=== PATIENT | male | born 1950 | race Caucasian/White ===

== ENCOUNTER 2018-06-09 07:32 | Observation (INO) ==
[2018-06-09] MEDS ORDERED: Morphine Inj 4 MG/ML Vial IV.PUSH ONE ×2 (08:36→09:48)
[2018-06-09] MEDS ORDERED: Famotidine PF Inj 20 MG/2 ML Vial IV.PUSH ONE (08:36)
--- NOTE | 2018-06-09 08:43 | ED ---
HPI General Chief Complaint: Abdominal Pain Stated Complaint: Stomach Pain Complaint Time Seen by Provider: 06/09/18 08:18 Source: patient Mode of arrival: ambulatory Limitations: no limitations History of Present Illness HPI narrative: 67 years old male complains abdominal pain. Patient states that he has intermittent abdominal pain for the past month. Patient states that the pain usually localized around epigastric area and lasted a few hours then resolved completely. Patient states that the pain radiates to the back at that time. Patient has not seen any physician for abdominal pain. Patient started having abdominal pain since last night. Patient stated pain is cramping pain constant pain localized around epigastric area. Patient denies any pain radiation today. Patient states that he has nausea but no vomiting or diarrhea. Patient denies any fever chills. Patient denies any dysuria or frequency. Patient denies any medical problem. Patient is not on any routine medication. Patient denies any chest pain or shortness of breath. Patient denies alcohol abuse. MD complaint: Reports abdominal pain Onset (ago): hour(s) Pain Consistency: constant Location: Reports RUQ and epigastric Severity: moderate Severity scale (1-10): 7 Quality: Reports cramping Radiation: Reports none Migration to: Reports no migration Relieving factors: nothing Exacerbating factors: nothing Associated symptoms: Reports nausea Related Data Home Medications Medication Instructions Recorded Confirmed No Known Home Medications 06/09/18 06/09/18 Allergies Allergy/AdvReac Type Severity Reaction Status Date / Time No Known Allergies Allergy Verified 06/09/18 07:59 Review of Systems ROS: all other systems reviewed are negative PMFSH Medical History Medical History Patient denies medical problems (Acute) Surgical History Surgical History No history of previous surgery (Acute) Social History Social History Substance History: No History of Abuse Second Hand Smoke Exposure: Yes Smoking Status: Never smoker How Often Do You Have a Drink Containing Alcohol: 2 to 4 times a month Recent Travel in [facility] within the Last 8 Weeks: No Recent Out of Country Travel within the Last 8 Weeks: No Immunization History Tetanus Immunization: <5 Years Exam Narrative Exam Narrative: GENERAL: Well-nourished, well-developed patient. SKIN: Focused skin assessment warm/dry. HEAD: Normocephalic. EYES: No scleral icterus. No injection or drainage. NECK: Supple, trachea midline. No JVD or lymphadenopathy. CARDIOVASCULAR: Regular rate and rhythm without murmurs, gallops, or rubs. RESPIRATORY: Breath sounds equal bilaterally. No accessory muscle use. GASTROINTESTINAL: Abdomen soft, nondistended. Patient has moderate tenderness on palpation epigastric and right upper quadrant of the abdomen. No rebound tenderness. No mass. MUSCULOSKELETAL: No cyanosis, or edema. BACK: Nontender without obvious deformity. No CVA tenderness. Neurologic exam normal. Course Initial Documented Vital Signs Pulse Rate 55 L 06/09/18 07:41 Respiratory Rate 18 06/09/18 07:41 Blood Pressure 149/62 H 06/09/18 07:41 Pulse Oximetry 99 06/09/18 07:41 Last Documented Vital Signs Pulse Rate 63 06/09/18 08:05 Respiratory Rate 14 06/09/18 08:05 Blood Pressure 118/59 L 06/09/18 08:05 Pulse Oximetry 99 06/09/18 08:59 Medical Decision Making [facility] Narrative Medical decision making narrative: 67 years old male with epigastric right upper quadrant abdominal pain. Normal saline solution 125 cc an hour. Morphine 2 mg IV. Zofran 4 mg IV. Pepcid 20 mg IV. Repeated morphine 4 mg IV. Zosyn 3.375 g IV given. Medical Screen Exam Complete: Yes Emergency Medical Condition: Yes Differential Diagnosis Differential Diagnosis: Differential diagnosis including gastritis, PUD, pancreatitis, cholecystitis, colitis, UTI, pyelonephritis, nephrolithiasis. Lab Data Lab results reviewed: Yes I reviewed the patient's lab results. Result diagrams: 06/09/18 09:00 06/09/18 09:00 Lab Results 06/09/18 06/09/18 06/09/18 Range/Units 09:00 09:00 09:00 WBC 8.9 (4.0-11.0) th/mm3 RBC 4.49 L (4.50-5.90) mil/mm3 Hgb 13.8 (13.0-17.0) gm/dL Hct 40.2 (39.0-51.0) % MCV 89.4 (80.0-100.0) fL MCH 30.6 (27.0-34.0) pg MCHC 34.3 (32.0-36.0) % RDW 12.9 (11.6-17.2) % Plt Count 284 (150-450) th/mm3 MPV 8.5 (7.0-11.0) fL Neut % (Auto) 79.8 H (16.0-70.0) % Lymph % (Auto) 12.4 (9.0-44.0) % [place] % (Auto) 7.1 (0.0-8.0) % Eos % (Auto) 0.2 (0.0-4.0) % Baso % (Auto) 0.5 (0.0-2.0) % Neut # (Auto) 7.1 (1.8-7.7) th/mm3 Lymph # (Auto) 1.1 (1.0-4.8) th/mm3 [place] # (Auto) 0.6 (0.0-0.9) th/mm3 Eos # (Auto) 0.0 (0.0-0.4) th/mm3 Baso # (Auto) 0.0 (0.0-0.2) th/mm3 WBC Differential . Differential Comment Auto diff final PT 10.8 (9.8-11.6) sec INR 1.1 Ratio APTT 25.9 (23.4-31.7) sec Sodium 139 (136-145) meq/L Potassium 4.0 (3.5-5.1) meq/L Chloride 104 (98-107) meq/L Carbon Dioxide 25.9 (21.0-32.0) meq/L Anion Gap 9 (5-15) meq/L BUN 23 H (7-18) mg/dL Creatinine 1.19 (0.60-1.30) mg/dL Estimated GFR 61 L (>89) mL/min Random Glucose 156 H (74-106) mg/dL Calcium 8.5 (8.5-10.1) mg/dL Total Bilirubin 0.4 (0.2-1.0) mg/dL AST 23 (15-37) U/L ALT 30 (12-78) U/L Alkaline Phosphatase 68 (45-117) U/L Total Creatine Kinase 177 (39-308) U/L CK-MB (CK-2) 1.4 (0.5-3.6) ng/mL Troponin I Less than 0.02 L (0.02-0.05) ng/mL Total Protein 7.7 (6.4-8.2) g/dL Albumin 4.1 (3.4-5.0) g/dL Lipase 92 (73-393) U/L Urine Color (Yellw/Straw) Urine Clarity (Clear) Urine pH (5.0-8.5) Ur Specific [place] (1.002-1.035) Urine Protein (Neg-Trace) mg/dL Urine Glucose (UA) (Negative) mg/dL Urine Ketones (Negative) mg/dL Urine Occult Blood (Negative) Urine Nitrate (Negative) Urine Bilirubin (Negative) Urine Urobilinogen (Less than 2) mg/dL Ur Leukocyte Esterase (Negative) Urine RBC (0-3) /hpf Urine WBC (0-5) /hpf Urine Mucus (Occasional) /lpf Micro UA Comment Ur Microscopic Review Urine Culture Comments 06/09/18 Range/Units 11:20 WBC (4.0-11.0) th/mm3 RBC (4.50-5.90) mil/mm3 Hgb (13.0-17.0) gm/dL Hct (39.0-51.0) % MCV (80.0-100.0) fL MCH (27.0-34.0) pg MCHC (32.0-36.0) % RDW (11.6-17.2) % Plt Count (150-450) th/mm3 MPV (7.0-11.0) fL Neut % (Auto) (16.0-70.0) % Lymph % (Auto) (9.0-44.0) % [place] % (Auto) (0.0-8.0) % Eos % (Auto) (0.0-4.0) % Baso % (Auto) (0.0-2.0) % Neut # (Auto) (1.8-7.7) th/mm3 Lymph # (Auto) (1.0-4.8) th/mm3 [place] # (Auto) (0.0-0.9) th/mm3 Eos # (Auto) (0.0-0.4) th/mm3 Baso # (Auto) (0.0-0.2) th/mm3 WBC Differential Differential Comment PT (9.8-11.6) sec INR Ratio APTT (23.4-31.7) sec Sodium (136-145) meq/L Potassium (3.5-5.1) meq/L Chloride (98-107) meq/L Carbon Dioxide (21.0-32.0) meq/L Anion Gap (5-15) meq/L BUN (7-18) mg/dL Creatinine (0.60-1.30) mg/dL Estimated GFR (>89) mL/min Random Glucose (74-106) mg/dL Calcium (8.5-10.1) mg/dL Total Bilirubin (0.2-1.0) mg/dL AST (15-37) U/L ALT (12-78) U/L Alkaline Phosphatase (45-117) U/L Total Creatine Kinase (39-308) U/L CK-MB (CK-2) (0.5-3.6) ng/mL Troponin I (0.02-0.05) ng/mL Total Protein (6.4-8.2) g/dL Albumin (3.4-5.0) g/dL Lipase (73-393) U/L Urine Color Yellow (Yellw/Straw) Urine Clarity Clear (Clear) Urine pH 5.0 (5.0-8.5) Ur Specific [place] Greater than 1.060 H (1.002-1.035) Urine Protein Negative (Neg-Trace) mg/dL Urine Glucose (UA) Negative (Negative) mg/dL Urine Ketones Trace H (Negative) mg/dL Urine Occult Blood Negative (Negative) Urine Nitrate Negative (Negative) Urine Bilirubin Negative (Negative) Urine Urobilinogen 2.0 H (Less than 2) mg/dL Ur Leukocyte Esterase Negative (Negative) Urine RBC 1 (0-3) /hpf Urine WBC 1 (0-5) /hpf Urine Mucus Few H (Occasional) /lpf Micro UA Comment Culture not ind Ur Microscopic Review Not Reportable Urine Culture Comments Culture not ind Imaging Data Radiologist's impression: Abdomen/Pelvis CT 06/09/18 08:36 CONCLUSION: 1. Mild gallbladder wall thickening without evidence of cholelithiasis or pericholecystic fluid or inflammation. 2. Otherwise unremarkable exam. Gallbladder Ultrasound 06/09/18 10:41 CONCLUSION: 1. Cholelithiasis with mildly thickened gallbladder wall and trace pericholecystic fluid. Acute inflammatory gallbladder disease is suspected. 2. No evidence of biliary duct obstructive disease. Discharge Plan Discharge Disposition Patient Disposition: 30 Still Patient Discharge Details Diagnosis: Abdominal pain, Acute cholecystitis Physicians Team ED Provider: Andrew Mckinnon Primary Care Provider: Primary Nadja Newell Attending Provider: David Hillman Other Providers: Pao Chapman Discharge Interventions Interventions: Vital Signs Last Done: 06/09/18 08:05 Status ED Status: Admitted Observation Patient
[2018-06-09] MEDS ORDERED: Sod Chloride 0.9% Inj 1,000 ML IV.CONT SCH (08:45)
[2018-06-09 09:21] LABS: Baso % (Auto) 0.5 % (0.0-2.0); Eos % (Auto) 0.2 % (0.0-4.0); Hematocrit 40.2 % (39.0-51.0); Hemoglobin 13.8 gm/dL (13.0-17.0); Lymph # (Auto) 1.1 th/mm3 (1.0-4.8); Lymph % (Auto) 12.4 % (9.0-44.0); Mean Corpuscular HGB Conc 34.3 % (32.0-36.0); Mean Corpuscular Hemoglobin 30.6 pg (27.0-34.0); Mean Corpuscular Volume 89.4 fL (80.0-100.0); Mean Platelet Volume 8.5 fL (7.0-11.0); Mono # (Auto) 0.6 th/mm3 (0.0-0.9); Mono % (Auto) 7.1 % (0.0-8.0); Neut # (Auto) 7.1 th/mm3 (1.8-7.7); Neut % (Auto) 79.8 % (16.0-70.0); Platelet Count 284 th/mm3 (150-450); Red Blood Count 4.49 mil/mm3 (4.50-5.90); Red Cell Distribution Width 12.9 % (11.6-17.2); White Blood Count 8.9 th/mm3 (4.0-11.0)
[2018-06-09 09:29] LABS: Activated Partial Thrombo Time 25.9 sec (23.4-31.7); INR 1.1 Ratio; Prothrombin Time 10.8 sec (9.8-11.6)
[2018-06-09 09:38] LABS: Albumin 4.1 g/dL (3.4-5.0); Anion Gap 9 meq/L (5-15); Aspartate Aminotransferase 23 U/L (15-37); Blood Urea Nitrogen 23 mg/dL (7-18); Calcium 8.5 mg/dL (8.5-10.1); Carbon Dioxide 25.9 meq/L (21.0-32.0); Chloride 104 meq/L (98-107); Glomerular Filtration Rate 61 mL/min (>89); Glucose,Random 156 mg/dL (74-106); Lipase 92 U/L (73-393); Sodium 139 meq/L (136-145)
[2018-06-09 09:43] LABS: Alanine Aminotransferase 30 U/L (12-78); Alkaline Phosphatase 68 U/L (45-117); Creatine Kinase 177 U/L (39-308); Total Protein 7.7 g/dL (6.4-8.2)
[2018-06-09 09:55] LABS: Creatine Kinase MB 1.4 ng/mL (0.5-3.6)
--- NOTE | 2018-06-09 10:39 | CT ---
EXAM DATE: 06/09/2018 10:16 AM EST AGE/SEX: 67 years / Male INDICATIONS: Epigastric and right upper quadrant pain. CLINICAL DATA: This is the patient's initial encounter. Patient reports that signs and symptoms have been present for 1 day and indicates a pain score of 7/10. MEDICAL/SURGICAL HISTORY: None. None. ORAL CONTRAST: No oral contrast ingested. RADIATION DOSE: 11.88 CTDI (mGy) COMPARISON: No prior exams available for comparison. TECHNIQUE: Multiple contiguous axial images were obtained through the abdomen and pelvis following b olus infusion of 95 ml Omnipaque 350 (iohexol) nonionic water-soluble contrast as a single exam dos e. No oral contrast ingested. Using automated exposure control and adjustment of the mA and/or kV ac cording to patient size, radiation dose was kept as low as reasonably achievable to obtain optimal di agnostic quality images. DICOM format image data is available electronically for review and comparis on. FINDINGS: Lower Lungs: The visualized lower lungs are clear. Liver: The liver has a homogeneous density without space-occupying lesion. There is no dilation of th e biliary tree. There are no calcified gallstones. The bladder wall is mildly thickened. There is no pericholecystic fluid Spleen: Homogeneous density without enlargement. Pancreas: Unremarkable without mass or calcification. Kidneys: Normal in size and shape. No evidence of mass or hydronephrosis. Adrenal Glands: Unremarkable. Aorta: The aorta and proximal iliac vessels are grossly unremarkable without aneurysmal dilation. Bowel/Mesentery: The bowel loops are grossly unremarkable. The cecum and sigmoid colon have a normal configuration. Abdominal Wall: Intact. Retroperitoneum: No evidence of adenopathy in the retrocrural, para-aortic, or deep pelvic regions. Bladder: Contours are smooth. Reproductive Organs: No abnormal masses or calcifications seen. Inguinal: The inguinal region is unremarkable without evidence of adenopathy. Bony Structures: Unremarkable. CONCLUSION: 1. Mild gallbladder wall thickening without evidence of cholelithiasis or pericholecystic fluid or i nflammation. 2. Otherwise unremarkable exam. Electronically signed by: John Jacobson MD 06/09/2018 10:38 AM EST
[2018-06-09] MEDS ORDERED: Aluminum/Magnesium/Simethacone Susp 30 ML UDC PO ONE (10:55)
[2018-06-09] MEDS ORDERED: Atropine/Scopolamine/Hyoscyamine/Phenobarb 10 ML Liq UDC PO ONE (10:55)
--- NOTE | 2018-06-09 11:21 | US ---
EXAM DATE: 06/09/2018 11:11 AM EST AGE/SEX: 67 years / Male INDICATIONS: Right upper quadrant abdominal pain. CLINICAL DATA: This is the patient's initial encounter. Patient reports that signs and symptoms have been present for 1 day and indicates a pain score of 8/10. MEDICAL/SURGICAL HISTORY: . Abdominal pain. Nausea. None. COMPARISON: [facility] [place], CT ABDOMEN & PELVIS W CONTRAST, 06/09/2018. . MEASUREMENTS: Liver:__ 15.3 cm. Common Bile Duct:__ 8mm. FINDINGS: Liver: Normal echotexture without focal lesion or ductal dilatation. Portal Vein: Hepatopedal flow seen in portal vein. Common Duct: No intraluminal mass or stone visualized. Gallbladder: Numerous intraluminal filling defects are noted. Gallbladder wall is mildly thickened. There is trace pericholecystic fluid. Pancreas: The visualized portions are within normal limits Right Kidney: Normal echotexture and cortical thickness. No mass or hydronephrosis. Other: None. CONCLUSION: 1. Cholelithiasis with mildly thickened gallbladder wall and trace pericholecystic fluid. Acute infl ammatory gallbladder disease is suspected. 2. No evidence of biliary duct obstructive disease. Electronically signed by: John Jacobson MD 06/09/2018 11:20 AM EST
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
[2018-06-09 11:44] LABS: Bilirubin,Urine Negative (Negative); Clarity,Urine Clear (Clear); Color,Urine Yellow (Yellw/Straw); Glucose,Urine (UA) Negative (Negative); Leukocyte Esterase,Urine Negative (Negative); Mucus,Urine Few /lpf (Occasional); Nitrite,Urine Negative (Negative)
[2018-06-09] MEDS ORDERED: Morphine Sulfate Inj 2 MG/ML Vial IV.PUSH PRN (11:50)
[2018-06-09] MEDS ORDERED: Acetaminophen 325 MG Tablet PO PRN (11:50)
[2018-06-09] MEDS ORDERED: Bisacodyl 10 MG Supp RECTAL PRN (11:50)
[2018-06-09] MEDS ORDERED: Morphine Inj 4 MG/ML Vial IV.PUSH PRN (11:50)
[2018-06-09] MEDS ORDERED: Naloxone Inj 0.4 MG/ML Vial IV.PUSH PRN (11:50)
[2018-06-09] MEDS ORDERED: Piperacil/Tazo 3.375 GM Premix 50 ML IV.SIG ONE (12:52)
--- NOTE | 2018-06-09 13:15 | P.CONGI ---
History of Present Illness Consult date: 06/09/18 Consult reason: Abdominal pain Chief complaint: Intractable Abdominal Pain History of Present Illness: This is a 67-year-old male with no significant past medical history who presented to the emergency department earlier today with complaints of abdominal pain. Patient states that he has had one prior episode of abdominal pain over the past month, states approximately a month ago. States that pain was located in the middle of his upper abdomen and woke him up in the middle the night. States the pain eventually resolved on its own. Patient also reports 2 episodes of nausea upon awakening in the morning, associated emesis but denies hematemesis and coffee ground emesis. Patient states the nausea then resolves throughout the day. He denies any decreased appetite or intolerance to food. Patient reports that bowel movements are normal. Patient states that the episode of abdominal pain began approximately 1:30 in the morning, states the pain is located across upper abdomen. States that pain has been constant since then. Denies any aggravating or alleviating factors. Denies any worsening of the pain after meals. Describes the pain as dull. Denies any fevers. Does report chills. Denies any known personal or family history of gallbladder issues. Gallbladder US revealed cholelithiasis with mildly thickened gallbladder wall and trace pericholecystic fluid. Acute inflammatory gallbladder disease is suspected. There is no evidence of biliary duct obstructive disease. Reports occasional ETOH. Denies smoking. Rare Aleve use. Review of Systems Constitutional: Reports chills, Denies fever(s), Denies weight loss Gastrointestinal: Reports abdominal pain, Reports change in stools, Reports nausea, Denies black, tarry stools, Denies bright, red blood in stools, Denies vomiting PMFSH - History History Provided By: Patient - Medical History Medical History: Medical History (Last Reviewed 06/09/18 @ 08:41 by Andrew Mckinnon MD) Patient denies medical problems - Surgical History Surgical History: Surgical History (Last Reviewed 06/09/18 @ 08:41 by Andrew Mckinnon MD) No history of previous surgery - Tobacco History Second Hand Smoke Exposure: Yes Smoking Status: Never smoker - Alcohol History How Often Do You Have a Drink Containing Alcohol: 2 to 4 times a month - Substance Use History Substance History: No History of Abuse - Travel History Recent Travel in the [facility] Within the Last 8 Weeks: No Recent Travel Out of the Country Within the Last 8 Weeks: No - Immunization History Tetanus Immunization: <5 Years Medications and Allergies Active Medications: Active Medications Acetaminophen (Tylenol) 650 mg PO Q6HR PRN PRN Reason: PAIN SCALE 1 TO 2 Al Hydroxide/Mg Hydroxide (Milk Of Magnjaun Liq) 30 ml PO Q12H PRN PRN Reason: Mild Constipation Bisacodyl (Dulcolax Supp) 10 mg RECTAL DAILY PRN PRN Reason: SEVERE CONSITIPATION Hydromorphone HCl (Dilaudid Pf Inj) 1 mg IV.PUSH Q3H PRN PRN Reason: BREAKTHROUGH PAIN Sodium Chloride (Ns Inj) 1,000 mls @ 125 mls/hr IV.CONT .Q8H ELADIO Stop: 06/09/18 16:44 Last Admin: 06/09/18 08:52 Dose: 125 mls/hr Sodium Chloride (Ns Inj) 1,000 mls @ 140 mls/hr IV.CONT .Q7H9M ELADIO Piperacillin/Tazobactam/Dextrose (Zosyn 3.375 Gm Premix) 50 mls @ 100 mls/hr IV.SIG ONCE ONE Stop: 06/09/18 13:21 Morphine Sulfate (Morphine Inj) 2 mg IV.PUSH Q3H PRN PRN Reason: PAIN 3-5; IF UABLE TO TAKE PO Morphine Sulfate (Morphine Inj) 4 mg IV.PUSH Q3H PRN PRN Reason: PAIN 6-10;IF UNABLE TO TAKE PO Naloxone HCl (Narcan Inj) 0.4 mg IV.PUSH UNSCH PRN PRN Reason: SEE LABEL COMMENTS Ondansetron HCl (Zofran Inj) 4 mg IV.PUSH Q6H PRN PRN Reason: NAUSEA OR VOMITING Sennosides (Senokot) 17.2 mg PO Q12H PRN PRN Reason: Moderate Constipation Allergies Allergy/AdvReac Type Severity Reaction Status Date / Time No Known Allergies Allergy Verified 06/09/18 07:59 Home Medications Medication Instructions Recorded Confirmed Type No Known Home Medications 06/09/18 06/09/18 History Exam Vital signs: Vital Signs 06/09/18 07:41 06/09/18 08:05 06/09/18 08:59 Pulse Rate 55 L 63 Respiratory Rate 18 14 Blood Pressure 149/62 H 118/59 L Pulse Oximetry 99 99 99 Intake & Output 06/08/18 06/09/1806/09/18 18:59 06:59 18:59 Weight 102.058 kg - Constitutional no acute distress - Routine HEENT Exam Head: Present: normocephalic, atraumatic - Routine Respiratory Exam Absent: accessory muscle use - Routine Abdominal Exam Present: soft, normoactive bowel sounds, tenderness (RUQ tenderness ). Absent: distended - Routine Skin Exam Present: dry, warm - Routine Neurological Exam Present: alert, oriented X3 Results - Labs CBC & Chem 7: 06/09/18 09:00 06/09/18 09:00 Labs: Laboratory Results - last 24 hr 06/09/18 06/09/18 06/09/18 09:00 09:00 09:00 WBC 8.9 RBC 4.49 L Hgb 13.8 Hct 40.2 MCV 89.4 MCH 30.6 MCHC 34.3 RDW 12.9 Plt Count 284 MPV 8.5 Neut % (Auto) 79.8 H Lymph % (Auto) 12.4 [place] % (Auto) 7.1 Eos % (Auto) 0.2 Baso % (Auto) 0.5 Neut # (Auto) 7.1 Lymph # (Auto) 1.1 [place] # (Auto) 0.6 Eos # (Auto) 0.0 Baso # (Auto) 0.0 WBC Differential . Differential Comment Auto diff final PT 10.8 INR 1.1 APTT 25.9 Sodium 139 Potassium 4.0 Chloride 104 Carbon Dioxide 25.9 Anion Gap 9 BUN 23 H Creatinine 1.19 Estimated GFR 61 L Random Glucose 156 H Calcium 8.5 Total Bilirubin 0.4 AST 23 ALT 30 Alkaline Phosphatase 68 Total Creatine Kinase 177 CK-MB (CK-2) 1.4 Troponin I Less than 0.02 L Total Protein 7.7 Albumin 4.1 Lipase 92 Urine Color Urine Clarity Urine pH Ur Specific [place] Urine Protein Urine Glucose (UA) Urine Ketones Urine Occult Blood Urine Nitrate Urine Bilirubin Urine Urobilinogen Ur Leukocyte Esterase Urine RBC Urine WBC Urine Mucus Micro UA Comment Ur Microscopic Review Urine Culture Comments 06/09/18 11:20 WBC RBC Hgb Hct MCV MCH MCHC RDW Plt Count MPV Neut % (Auto) Lymph % (Auto) [place] % (Auto) Eos % (Auto) Baso % (Auto) Neut # (Auto) Lymph # (Auto) [place] # (Auto) Eos # (Auto) Baso # (Auto) WBC Differential Differential Comment PT INR APTT Sodium Potassium Chloride Carbon Dioxide Anion Gap BUN Creatinine Estimated GFR Random Glucose Calcium Total Bilirubin AST ALT Alkaline Phosphatase Total Creatine Kinase CK-MB (CK-2) Troponin I Total Protein Albumin Lipase Urine Color Yellow Urine Clarity Clear Urine pH 5.0 Ur Specific [place] Greater than 1.060 H Urine Protein Negative Urine Glucose (UA) Negative Urine Ketones Trace H Urine Occult Blood Negative Urine Nitrate Negative Urine Bilirubin Negative Urine Urobilinogen 2.0 H Ur Leukocyte Esterase Negative Urine RBC 1 Urine WBC 1 Urine Mucus Few H Micro UA Comment Culture not ind Ur Microscopic Review Not Reportable Urine Culture Comments Culture not ind - Imaging Impressions Abdomen/Pelvis CT 06/09/18 08:36 CONCLUSION: 1. Mild gallbladder wall thickening without evidence of cholelithiasis or pericholecystic fluid or inflammation. 2. Otherwise unremarkable exam. Gallbladder Ultrasound 06/09/18 10:41 CONCLUSION: 1. Cholelithiasis with mildly thickened gallbladder wall and trace pericholecystic fluid. Acute inflammatory gallbladder disease is suspected. 2. No evidence of biliary duct obstructive disease. Assessment and Plan - Plan Assessment: - Upper abdominal pain- Patient states that he has had one prior episode of abdominal pain over the past month, states approximately a month ago. States that pain was located in the middle of his upper abdomen and woke him up in the middle the night. States the pain eventually resolved on its own. Patient also reports 2 episodes of nausea upon awakening in the morning, denies any emesis. Patient denies any nausea or emesis throughout the day. He denies any decreased appetite or intolerance to food. Patient reports that bowel movements are normal. Patient states that this episode of abdominal pain began approximately 1:30 in the morning, states the pain is located across his entire upper abdomen. States that pain is been constant since then. Denies any aggravating or alleviating factors. Denies any worsening of the pain after meals. Describes the pain as dull. Denies any fevers. Does report chills. Denies any known personal or family history of gallbladder issues. Occasional ETOH. Denies smoking. Occasional Aleve use. Gallbladder US (06/09) cholelithiasis with mildly thickened gallbladder wall and trace pericholecystic fluid. Acute inflammatory gallbladder disease is suspected. There is no evidence of biliary duct obstructive disease. CT abdomen/pelvis W IV contrast (06/09) Mild gallbladder wall thickening without evidence of cholelithiasis or pericholecystic fluid or inflammation. Pt reports last EGD approximately 6 years ago, normal exam. History of Schatzki's ring with previous dilatation for bolus sensation, pt denies any continuos dysphagia or bolus sensation Last colonoscopy approximately 6 years ago, states normal exam. Plan: Consult GS Anti-emetics PRN Pain control NPO pending surgery eval Further recommendations based on clinical course and findings of above Pt has been seen and examined by myself and Dr. Chapman and this note is written on her behalf
[2018-06-09] MEDS ORDERED: fentaNYL Citrate Inj 250 MCG/5 ML Ampul ONE (13:40)
--- NOTE | 2018-06-09 13:44 | P.CONGS ---
[facility] Gen Surgery Consult Note Consult date: 06/09/18 Narrative: 67-year-old male presents with severe epigastric abdominal Pain which woke him up from sleep early this morning. Last night he had pot roast mashed potatoes salad and a Snickers bar for dinner. He and his relate that he has had 3- 4 such episodes beginning one month ago. He has also had persistent intermittent nausea. He was evaluated in the emergency department and noted to have normal white blood count and normal LFTs. However a CT of the abdomen pelvis suggested acute cholecystitis and gallbladder ultrasound reveals gallstones, wall thickening, and trace pericholecystic fluid. Review of Systems All other systems reviewed negative except as stated in [facility] - History History Provided By: Patient - Medical History Medical History: Medical History (Last Reviewed 06/09/18 @ 08:41 by Andrew Mckinnon MD) Patient denies medical problems - Surgical History Surgical History: Surgical History (Last Reviewed 06/09/18 @ 08:41 by Andrew Mckinnon MD) No history of previous surgery - Social History I have reviewed the patient's Social History: Yes - Tobacco History Second Hand Smoke Exposure: Yes Smoking Status: Never smoker - Alcohol History How Often Do You Have a Drink Containing Alcohol: 2 to 4 times a month - Substance Use History Substance History: No History of Abuse - Travel History Recent Travel in the [place] Within the Last 8 Weeks: No Recent Travel Out of the Country Within the Last 8 Weeks: No - Immunization History Tetanus Immunization: <5 Years Medications and Allergies Active Medications: Active Medications Acetaminophen (Tylenol) 650 mg PO Q6HR PRN PRN Reason: PAIN SCALE 1 TO 2 Al Hydroxide/Mg Hydroxide (Milk Of Magnjaun Liq) 30 ml PO Q12H PRN PRN Reason: Mild Constipation Bisacodyl (Dulcolax Supp) 10 mg RECTAL DAILY PRN PRN Reason: SEVERE CONSITIPATION Hydromorphone HCl (Dilaudid Pf Inj) 1 mg IV.PUSH Q3H PRN PRN Reason: BREAKTHROUGH PAIN Sodium Chloride (Ns Inj) 1,000 mls @ 125 mls/hr IV.CONT .Q8H ELADIO Stop: 06/09/18 16:44 Last Admin: 06/09/18 08:52 Dose: 125 mls/hr Sodium Chloride (Ns Inj) 1,000 mls @ 140 mls/hr IV.CONT .Q7H9M ELADIO Morphine Sulfate (Morphine Inj) 2 mg IV.PUSH Q3H PRN PRN Reason: PAIN 3-5; IF UABLE TO TAKE PO Morphine Sulfate (Morphine Inj) 4 mg IV.PUSH Q3H PRN PRN Reason: PAIN 6-10;IF UNABLE TO TAKE PO Naloxone HCl (Narcan Inj) 0.4 mg IV.PUSH UNSCH PRN PRN Reason: SEE LABEL COMMENTS Ondansetron HCl (Zofran Inj) 4 mg IV.PUSH Q6H PRN PRN Reason: NAUSEA OR VOMITING Sennosides (Senokot) 17.2 mg PO Q12H PRN PRN Reason: Moderate Constipation Allergies Allergy/AdvReac Type Severity Reaction Status Date / Time No Known Allergies Allergy Verified 06/09/18 07:59 Home Medications Medication Instructions Recorded Confirmed Type No Known Home Medications 06/09/18 06/09/18 History Exam Vital signs: Vital Signs 06/09/18 07:41 06/09/18 08:05 06/09/18 08:59 Pulse Rate 55 L 63 Respiratory Rate 18 14 Blood Pressure 149/62 H 118/59 L Pulse Oximetry 99 99 99 Intake & Output 06/08/18 06/09/18 06/09/18 18:59 06:59 18:59 Weight 102.058 kg Narrative: GENERAL: Awake and alert. No acute distress. Cooperative. HEAD: Normocephalic. Atraumatic. EYES: Pupils equal round and reactive to light bilaterally. No scleral icterus. ENT: Moist oral mucosa. NECK: Trachea midline. CHEST: Lungs clear to auscultation bilaterally with no wheezing or rhonchi. No respiratory distress. CARDIOVASCULAR: Mild tachycardia. ABDOMEN: Moderate tenderness to palpation in the epigastrium and right upper quadrant. Positive Gay sign. EXTREMITIES: No cyanosis or edema. SKIN: Warm, dry, nonjaundiced. Results - Labs 06/09/18 09:00 06/09/18 09:00 Laboratory Results - last 24 hr 06/09/18 06/09/18 06/09/18 09:00 09:00 09:00 WBC 8.9 RBC 4.49 L Hgb 13.8 Hct 40.2 MCV 89.4 MCH 30.6 MCHC 34.3 RDW 12.9 Plt Count 284 MPV 8.5 Neut % (Auto) 79.8 H Lymph % (Auto) 12.4 [place] % (Auto) 7.1 Eos % (Auto) 0.2 Baso % (Auto) 0.5 Neut # (Auto) 7.1 Lymph # (Auto) 1.1 [place] # (Auto) 0.6 Eos # (Auto) 0.0 Baso # (Auto) 0.0 WBC Differential . Differential Comment Auto diff final PT 10.8 INR 1.1 APTT 25.9 Sodium 139 Potassium 4.0 Chloride 104 Carbon Dioxide 25.9 Anion Gap 9 BUN 23 H Creatinine 1.19 Estimated GFR 61 L Random Glucose 156 H Calcium 8.5 Total Bilirubin 0.4 AST 23 ALT 30 Alkaline Phosphatase 68 Total Creatine Kinase 177 CK-MB (CK-2) 1.4 Troponin I Less than 0.02 L Total Protein 7.7 Albumin 4.1 Lipase 92 Urine Color Urine Clarity Urine pH Ur Specific [place] Urine Protein Urine Glucose (UA) Urine Ketones Urine Occult Blood Urine Nitrate Urine Bilirubin Urine Urobilinogen Ur Leukocyte Esterase Urine RBC Urine WBC Urine Mucus Micro UA Comment Ur Microscopic Review Urine Culture Comments 06/09/18 11:20 WBC RBC Hgb Hct MCV MCH MCHC RDW Plt Count MPV Neut % (Auto) Lymph % (Auto) [place] % (Auto) Eos % (Auto) Baso % (Auto) Neut # (Auto) Lymph # (Auto) [place] # (Auto) Eos # (Auto) Baso # (Auto) WBC Differential Differential Comment PT INR APTT Sodium Potassium Chloride Carbon Dioxide Anion Gap BUN Creatinine Estimated GFR Random Glucose Calcium Total Bilirubin AST ALT Alkaline Phosphatase Total Creatine Kinase CK-MB (CK-2) Troponin I Total Protein Albumin Lipase Urine Color Yellow Urine Clarity Clear Urine pH 5.0 Ur Specific [place] Greater than 1.060 H Urine Protein Negative Urine Glucose (UA) Negative Urine Ketones Trace H Urine Occult Blood Negative Urine Nitrate Negative Urine Bilirubin Negative Urine Urobilinogen 2.0 H Ur Leukocyte Esterase Negative Urine RBC 1 Urine WBC 1 Urine Mucus Few H Micro UA Comment Culture not ind Ur Microscopic Review Not Reportable Urine Culture Comments Culture not ind - Imaging Imaging: ITS Impressions Abdomen/Pelvis CT 06/09/18 08:36 CONCLUSION: 1. Mild gallbladder wall thickening without evidence of cholelithiasis or pericholecystic fluid or inflammation. 2. Otherwise unremarkable exam. Gallbladder Ultrasound 06/09/18 10:41 CONCLUSION: 1. Cholelithiasis with mildly thickened gallbladder wall and trace pericholecystic fluid. Acute inflammatory gallbladder disease is suspected. 2. No evidence of biliary duct obstructive disease. CT scan - abdomen: report reviewed, image reviewed CT scan - pelvis: report reviewed US - abdomen: report reviewed Assessment and Plan - Assessment (1) Acute cholecystitis Code(s): K81.0 - Acute cholecystitis Status: Acute - Plan Patient is a 67-year-old male who has an evaluation consistent with acute cholecystitis. Recommend to proceed to the operating room for laparoscopic cholecystectomy possible open. I discussed details and risks of the case with the patient and his and he desires to proceed.
[2018-06-09] MEDS ORDERED: Bupivacaine/Epinephrine PF Inj 0.5% 30 ML Vial ONE (13:48)
[2018-06-09] MEDS ORDERED: Chlorhexidine Gluconate 2% 1 Pack (2 Cloths) TOPICAL ONE (14:29)
[2018-06-09] MEDS ORDERED: Metoprolol Tartrate 25 MG Tablet PO PRN (14:29)
[2018-06-09] MEDS ORDERED: Sodium Chlor 0.9% Inj 500 ML IV.SIG SCH (15:00)
--- NOTE | 2018-06-09 15:44 | ECG ---
Date Performed: 06/09/2018 Time Performed: 15:28:05 PTAGE: 67 years EKG: Sinus rhythm BORDERLINE LEFT AXIS DEVIATION MODERATE INTRAVENTRICULAR CONDUCTION DELAY BORDERLINE ECG Compared to prior electrocardiogram, rate has increased . DOCTOR: Thomas Black Interpretating Date/Time 06/09/2018 15:43:00
[2018-06-09] MEDS ORDERED: Lidocaine PF 1% Inj 5 ML Syringe OTHER ONE (16:55)
[2018-06-09] MEDS ORDERED: Phenylephrine/NS 1000 MCG/10ML Syringe IV.PUSH ONE (16:55)
[2018-06-09] MEDS ORDERED: Ketorolac Inj 30 MG/ML (IVP) Vial IV.PUSH ONE (16:55)
[2018-06-09] MEDS ORDERED: Glycopyrrolate Inj 1 MG/5 ML Syringe IV.PUSH ONE (16:55)
[2018-06-09] MEDS ORDERED: Neostigmine Inj 5 MG/5 ML Syringe IV.PUSH ONE (16:55)
--- NOTE | 2018-06-09 18:21 | P.OP ---
- Preoperative Diagnosis (1) Acute cholecystitis - Postoperative Diagnosis (1) Acute cholecystitis Date of procedure: 06/09/18 Procedure: Laparoscopic cholecystectomy Anesthesia: TIMOTHY Surgeon: Haresh Soto MD Training And Development Head: Dav Estimated blood loss (mL): 30 Pathology: other (gallbladder and contents) Operation and Findings: Operative findings: Distended thickwalled gallbladder with stones. Procedure in detail: The patient was taken to the operating room and placed in the supine position. General endotracheal anesthesia was induced. The abdomen was prepped and draped in usual sterile fashion and a surgical timeout was performed to verify correct patient procedure and site. Appropriate perioperative antibiotics were administered. Local anesthetic was injected in the skin and subcutaneous tissue superior to the umbilicus and a 5 mm incision performed. The abdomen was entered using the Optiview 5 mm trocar with direct laparoscopic visualization. The abdomen was then insufflated to 15 mmHg with CO2 gas which the patient tolerated well. Next a 12 mm port was placed in the epigastrium and two 5 mm ports in the right upper quadrant and right lateral abdomen. The patient was placed in reverse Trendelenburg position and turned slightly to the left. Attention was turned to the right upper quadrant and the dome of the gallbladder was grasped and retracted cephalad. The gallbladder was tense and distended and required decompression using the aspiration needle. The wall was very thickened. The infundibulum was retracted laterally to expose Calot's triangle. Blunt dissection and judicious use of electrocautery was used to expose the cystic duct and the cystic artery directly entering the gallbladder. Two clips were placed proximally on each of these structures and one distally and they were transected. The gallbladder was then removed from the liver bed using electrocautery. Hemostasis was achieved. The right upper quadrant was copiously irrigated because of spillage of some bile. The gallbladder was then removed from the abdomen using an Endo Catch bag. The clips were in place on the cystic duct and cystic artery stumps with no bleeding or bile leakage. At this point, the abdomen was allowed to desufflate and trochars were removed. The fascia at the 12 mm port site was closed with 0 Vicryl suture. Skin was closed with subcuticular 4-0 Monocryl as well as Dermabond. The patient tolerated the procedure well and was extubated and taken to PACU in stable condition. All sponge and instrument counts were correct.
[2018-06-09] MEDS ORDERED: Sugammadex Inj 200 MG/2 ML Vial IV.PUSH ONE (18:39)
[2018-06-09] MEDS: Sod Chloride 0.9% Inj 1,000 ML IV.CONT SCH (19:46)
[2018-06-09] MEDS: HYDROmorphone PF Inj 1 MG/ML Ampul IV.PUSH PRN (23:39)
[2018-06-10] MEDS: Ketorolac 10 MG Tablet PO SCH ×2 (00:15→05:05)
[2018-06-10] MEDS: Sod Chloride 0.9% Inj 1,000 ML IV.CONT SCH ×3 (03:07→03:12)
[2018-06-10] MEDS: HYDROmorphone PF Inj 1 MG/ML Ampul IV.PUSH PRN (04:03)
--- NOTE | 2018-06-10 06:07 | ECG ---
Date Performed: 06/09/2018 Time Performed: 12:50:04 PTAGE: 67 years EKG: Sinus rhythm WITH MARKED SINUS ARRHYTHMIA INDETERMINATE AXIS MODERATE INTRAVENTRICULAR CONDUCTION DELAY BORDERLIN E ECG NO PREVIOUS TRACING DOCTOR: Thomas Black Interpretating Date/Time 06/10/2018 06:06:51
[2018-06-10 06:10] LABS: Baso % (Auto) 0.1 % (0.0-2.0); Hemoglobin 12.4 gm/dL (13.0-17.0); Lymph # (Auto) 0.9 th/mm3 (1.0-4.8); Lymph % (Auto) 7.4 % (9.0-44.0); Mean Corpuscular HGB Conc 33.5 % (32.0-36.0); Mean Corpuscular Hemoglobin 29.9 pg (27.0-34.0); Mean Corpuscular Volume 89.4 fL (80.0-100.0); Mean Platelet Volume 8.2 fL (7.0-11.0); Mono # (Auto) 0.7 th/mm3 (0.0-0.9); Neut # (Auto) 10.7 th/mm3 (1.8-7.7); Neut % (Auto) 86.5 % (16.0-70.0); Platelet Count 235 th/mm3 (150-450); Red Blood Count 4.14 mil/mm3 (4.50-5.90); Red Cell Distribution Width 12.9 % (11.6-17.2); White Blood Count 12.3 th/mm3 (4.0-11.0)
[2018-06-10 06:45] LABS: Alanine Aminotransferase 75 U/L (12-78); Albumin 3.3 g/dL (3.4-5.0); Alkaline Phosphatase 60 U/L (45-117); Anion Gap 9 meq/L (5-15); Aspartate Aminotransferase 53 U/L (15-37); Blood Urea Nitrogen 18 mg/dL (7-18); Calcium 7.9 mg/dL (8.5-10.1); Carbon Dioxide 25.3 meq/L (21.0-32.0); Chloride 106 meq/L (98-107); Glomerular Filtration Rate 68 mL/min (>89); Glucose,Random 128 mg/dL (74-106); Potassium 4.2 meq/L (3.5-5.1); Sodium 140 meq/L (136-145); Total Protein 6.5 g/dL (6.4-8.2)
[2018-06-10 08:16] VITALS: RESP 20
--- NOTE | 2018-06-10 10:48 | P.PNGS ---
Subjective Interval history: Doing well post op without complaint. Physical Exam Vital signs: Vital Signs 06/09/18 14:23 06/09/18 18:42 06/09/18 18:43 Temperature 97.3 F L 98.2 F Pulse Rate 100 H 101 H Respiratory Rate 15 22 Blood Pressure 118/65 Pulse Oximetry 93 L 91 L 06/09/18 18:45 06/09/18 19:00 06/09/18 19:15 Temperature Pulse Rate 103 H 88 86 Respiratory Rate 16 13 13 Blood Pressure 121/64 107/59 L 102/59 L Pulse Oximetry 94 L 97 99 06/09/18 19:20 06/09/18 19:30 06/09/18 19:45 Temperature Pulse Rate 94 H 93 H Respiratory Rate 12 11 L Blood Pressure 106/61 113/63 Pulse Oximetry 98 96 95 06/09/18 20:00 06/09/18 20:10 06/09/18 20:15 Temperature 97.3 F L 98 F Pulse Rate 93 H 91 H Respiratory Rate 18 14 Blood Pressure 124/64 101/58 L Pulse Oximetry 94 L 97 97 06/10/18 00:00 06/10/18 04:00 06/10/18 08:00 Temperature 97.9 F 97.3 F L 97.4 F L Pulse Rate 82 76 74 Respiratory Rate 18 17 20 Blood Pressure 105/55 L 102/56 L 104/58 L Pulse Oximetry 95 95 94 L Intake & Output 06/09/18 06/10/18 06/10/18 18:59 06:59 18:59 Intake Total 1000 / 1000 1480 / 1480 Output Total Balance 990 / 990 1480 / 1480 Weight 102.058 kg 104 kg Intake: IV 1000 / 1000 NS Inj 1,000 ML @ 140 mls/hr IV 1000 / 1000 .CONT .Q7H9M [facility] Rx#:[id number] Oral 480 / 480 Anesthesia Amount 1000 / 1000 Output: Estimated Blood Loss Narrative: Abd: kai cortes c/d/i Results - Labs 06/10/18 05:37 06/10/18 05:37 Laboratory Results - last 24 hr 06/09/18 06/10/18 06/10/18 11:20 05:37 05:37 WBC 12.3 H RBC 4.14 L Hgb 12.4 L Hct 37.0 L MCV 89.4 MCH 29.9 MCHC 33.5 RDW 12.9 Plt Count 235 MPV 8.2 Neut % (Auto) 86.5 H Lymph % (Auto) 7.4 L [place] % (Auto) 6.0 Eos % (Auto) 0.0 Baso % (Auto) 0.1 Neut # (Auto) 10.7 H Lymph # (Auto) 0.9 L [place] # (Auto) 0.7 Eos # (Auto) 0.0 Baso # (Auto) 0.0 WBC Differential . Differential Comment Auto diff final Sodium 140 Potassium 4.2 Chloride 106 Carbon Dioxide 25.3 Anion Gap 9 BUN 18 Creatinine 1.09 Estimated GFR 68 L Random Glucose 128 H Calcium 7.9 L Total Bilirubin 0.6 AST 53 H ALT 75 Alkaline Phosphatase 60 Total Protein 6.5 D Albumin 3.3 L D Urine Color Yellow Urine Clarity Clear Urine pH 5.0 Ur Specific [place] Greater than 1.060 H Urine Protein Negative Urine Glucose (UA) Negative Urine Ketones Trace H Urine Occult Blood Negative Urine Nitrate Negative Urine Bilirubin Negative Urine Urobilinogen 2.0 H Ur Leukocyte Esterase Negative Urine RBC 1 Urine WBC 1 Urine Mucus Few H Micro UA Comment Culture not ind Ur Microscopic Review Not Reportable Urine Culture Comments Culture not ind - Imaging Imaging: ITS Impressions Abdomen/Pelvis CT 06/09/18 08:36 CONCLUSION: 1. Mild gallbladder wall thickening without evidence of cholelithiasis or pericholecystic fluid or inflammation. 2. Otherwise unremarkable exam. Gallbladder Ultrasound 06/09/18 10:41 CONCLUSION: 1. Cholelithiasis with mildly thickened gallbladder wall and trace pericholecystic fluid. Acute inflammatory gallbladder disease is suspected. 2. No evidence of biliary duct obstructive disease. Assessment and Plan - Assessment (1) Acute cholecystitis Code(s): K81.0 - Acute cholecystitis Status: Acute - Plan POD 1 s/p lap vinny, doing well. Clear for dc home from my standpoint. Can have regular diet. F/u with me in two weeks.
--- NOTE | 2018-06-10 11:53 | P.PNFP ---
Subjective Interval history: No acute events overnight. Patient seen and examined this AM. Remains afebrile, vitals stable. Patient states he is feeling much better following his surgery. Denies fevers, CP, dyspnea, abdominal pain. He otherwise does not report specific complaints or concerns. <Domo Erickson - 06/10/18 11:52> Results - Labs Result diagrams: 06/10/18 05:37 06/10/18 05:37 <David Hillman - 06/12/18 11:58> Abnormal lab results 06/10/18 06/10/18 Range/Units 05:37 05:37 WBC 12.3 H (4.0-11.0) th/mm3 RBC 4.14 L (4.50-5.90) mil/mm3 Hgb 12.4 L (13.0-17.0) gm/dL Hct 37.0 L (39.0-51.0) % Neut % (Auto) 86.5 H (16.0-70.0) % Lymph % (Auto) 7.4 L (9.0-44.0) % Neut # (Auto) 10.7 H (1.8-7.7) th/mm3 Lymph # (Auto) 0.9 L (1.0-4.8) th/mm3 Estimated GFR 68 L (>89) mL/min Random Glucose 128 H (74-106) mg/dL Calcium 7.9 L (8.5-10.1) mg/dL AST 53 H (15-37) U/L Albumin 3.3 L D (3.4-5.0) g/dL Short CBC 06/10/18 Range/Units 05:37 WBC 12.3 H (4.0-11.0) th/mm3 Hgb 12.4 L (13.0-17.0) gm/dL Hct 37.0 L (39.0-51.0) % Plt Count 235 (150-450) th/mm3 BMP 06/10/18 05:37 Sodium 140 Potassium 4.2 Chloride 106 Carbon Dioxide 25.3 BUN 18 Creatinine 1.09 Calcium 7.9 L Liver Function 06/10/18 Range/Units 05:37 Total Bilirubin 0.6 (0.2-1.0) mg/dL AST 53 H (15-37) U/L ALT 75 (12-78) U/L Alkaline Phosphatase 60 (45-117) U/L Albumin 3.3 L D (3.4-5.0) g/dL <Charlie Ericksonsh - 06/10/18 11:52> Physical Exam Vital signs: Vital Signs 06/09/18 14:23 06/09/18 18:42 06/09/18 18:43 Temperature 97.3 F L 98.2 F Pulse Rate 100 H 101 H Respiratory Rate 15 22 Blood Pressure 118/65 Pulse Oximetry 93 L 91 L 06/09/18 18:45 06/09/18 19:00 06/09/18 19:15 Temperature Pulse Rate 103 H 88 86 Respiratory Rate 16 13 13 Blood Pressure 121/64 107/59 L 102/59 L Pulse Oximetry 94 L 97 99 06/09/18 19:20 06/09/18 19:30 06/09/18 19:45 Temperature Pulse Rate 94 H 93 H Respiratory Rate 12 11 L Blood Pressure 106/61 113/63 Pulse Oximetry 98 96 95 06/09/18 20:00 06/09/18 20:10 06/09/18 20:15 Temperature 97.3 F L 98 F Pulse Rate 93 H 91 H Respiratory Rate 18 14 Blood Pressure 124/64 101/58 L Pulse Oximetry 94 L 97 97 06/10/18 00:00 06/10/18 04:00 06/10/18 08:00 Temperature 97.9 F 97.3 F L 97.4 F L Pulse Rate 82 76 74 Respiratory Rate 18 17 20 Blood Pressure 105/55 L 102/56 L 104/58 L Pulse Oximetry 95 95 94 L Intake & Output 06/09/18 06/10/18 06/10/18 18:59 06:59 18:59 Intake Total 1000 / 1000 1480 / 1480 Output Total Balance 990 / 990 1480 / 1480 Weight 102.058 kg 104 kg Intake: IV 1000 / 1000 NS Inj 1,000 ML @ 140 mls/hr IV 1000 / 1000 .CONT .Q7H9M [facility] Rx#:[id number] Oral 480 / 480 Anesthesia Amount 1000 / 1000 Output: Estimated Blood Loss <Domo Erickson - 06/10/18 11:52> Narrative: GENERAL: NAD, pleasant EYES: EOMI. No conjunctival injection. ENT: No nasal drainage. Moist mucous membranes. NECK: No LAD. No neck stiffness. RESPIRATORY: CTAB, no w/r/r CARDIOVASCULAR: Regular rate and rhythm, no murmurs or rubs. Hands and feet are warm and well perfused. ABDOMEN: Soft, nt, nd, +BS, no guarding, no rebound tenderness EXTREMITIES: No edema bilaterally. MUSCULOSKELETAL: Strength grossly normal in upper and lower extremities. SKIN: Purpuric nevus like lesion on left side of chest. Adequate skin turgor. NEUROLOGICAL: Alert. pulmonary disease specialist grossly intact. <Domo Erickson - 06/10/18 11:52> Assessment and Plan - Assessment (1) Abdominal pain Code(s): R10.9 - Unspecified abdominal pain Status: Resolved (2) DVT prophylaxis Status: Acute <David Hillman - 06/12/18 11:58> (1) Abdominal pain Code(s): R10.9 - Unspecified abdominal pain Status: Resolved Plan: 67-year-old male with no significant past medical history who presented with a 4 -week history of waxing and waning attacks of upper abdominal pain, now improved s/p lap vinny -Consult GI, recommendations appreciated -General surgery consulted s/p laparoscopic cholecystectomy 06/09 Doing well postoperatively Cleared for discharge Recommended follow up with surgery in two weeks and follow up to establish care with his primary care physician IMAGING: Gallbladder US CONCLUSION: 1. Cholelithiasis with mildly thickened gallbladder wall and trace pericholecystic fluid. Acute inflammatory gallbladder disease is suspected. 2. No evidence of biliary duct obstructive disease Abdominal CT CONCLUSION: 1. Mild gallbladder wall thickening without evidence of cholelithiasis or pericholecystic fluid or inflammation. 2. Otherwise unremarkable exam. (2) DVT prophylaxis Status: Acute Plan: bilateral SCDs <JonathanfaustinoDomo casillas - 06/10/18 11:53> - Attending Attestation See the residents documentation for details. I saw and evaluated the patient regarding the [place] portions of this evaluation and agree with the residents findings and plans as written. Parts of this note were created using [employer] voice recognition software program. While efforts were made to correct any mistakes made by this software, some mistakes, errors, and omissions may remain in the final note that were not caught when the note was originally created. Plan of care was discussed and agreed upon with the patient as specifically documented in the above note. An opportunity to ask questions with explanation was provided. Patient voiced understanding on all information reviewed and discussed. <David Hillman - 06/12/18 11:58> <Domo Erickson - Last Filed: 06/10/18 11:53> (1) Abdominal pain Qualifiers: Abdominal location: epigastric Qualified Code(s): R10.13 - Epigastric pain <David Hillman - Last Filed: 06/12/18 11:58> (1) Abdominal pain Qualifiers: Abdominal location: epigastric Qualified Code(s): R10.13 - Epigastric pain <Domo Erickson - Last Filed: 06/10/18 11:53> (1) Abdominal pain Qualifiers: Abdominal location: epigastric Qualified Code(s): R10.13 - Epigastric pain <David Hillman - Last Filed: 06/12/18 11:58> (1) Abdominal pain Qualifiers: Abdominal location: epigastric Qualified Code(s): R10.13 - Epigastric pain
[2018-06-10 12:15] VITALS: BP 105/56; PULSE 80; TEMP 97.3; O2SAT 20
== END 2018-06-10 12:50 | disposition home or self-care (01) ==
LOC: NEPC 07:32 → INTOOBSV 11:12 → NEDA 11:12 → NEPGCP 13:27 → N07 19:09
PROVIDERS: ADMIT Family Medicine; ATTEND Family Medicine